=== PATIENT | male | born 1955 | race Caucasian/White ===

== ENCOUNTER 2017-12-25 11:18 | Emergency (ER) | payer OTHER, MEDICAID ==
[~2017-12-25] VITALS: Ht 170.2 cm; Wt 83.5 kg
[2017-12-25 11:19] VITALS: BP 137/82
--- NOTE | 2017-12-25 11:29 | NUR ---
PT AMB WITH W/C TO [facility].
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
--- NOTE | 2017-12-25 11:40 | NUR ---
Patient being evaluated by DR CHASE at bedside.
[2017-12-25 12:41] VITALS: BP 131/89
== END 2017-12-25 12:41 | disposition home or self-care (01) ==
LOC: MED 11:18
DX: S43.102A Unspecified dislocation of left acromioclavicular joint, initial encounter (principal); I10 Essential (primary) hypertension; W17.89XA Other fall from one level to another, initial encounter; Y93.89 Activity, other specified; Y92.89 Other specified places as the place of occurrence of the external cause; Y99.8 Other external cause status
CPT/HCPCS: 73000; 73020; 99284

== ENCOUNTER 2019-10-18 12:51 | Emergency (ER) | payer OTHER, MEDICAID ==
[~2019-10-18] VITALS: Ht 170.2 cm; Wt 81.6 kg
[2019-10-18 13:44] VITALS: BP 139/80
--- NOTE | 2019-10-18 13:53 | NUR ---
WAIT AT LOBBY.
--- NOTE | 2019-10-18 14:57 | NUR ---
PATIENT WHEELCHAIR ASSISTED TO BED 11.
--- NOTE | 2019-10-18 15:11 | NUR ---
BIB CAREGIVER C/O SORE THROAT X1 DAY. CHRONIC MOIST COUGH. DENIES SOB/ CP, N/V/D, CHILLS, FEVER. WHEEZING HEARD THROUGHOUT BILATERAL LOBES. RESP ARE EVEN AND UNLABORED. NO ACCESSORY MUSCLE USE NOTED. BOWEL SOUNDS NORMOACTIVE IN ALL QUADRANTS. SKIN IS COOL, DRY, IN TACT. PATIENT IS NON AMBULATORY. CAREGIVER AT BEDSIDE. HX: SEIZURES, DISABLED NKA
[2019-10-18 15:35] VITALS: BP 139/80
--- NOTE | 2019-10-18 15:36 | NUR ---
Patient discharged with v/s stable. Written and verbal after care instructions given and explained. Patient verbalized understanding. Wheel Chair Assisted with by caregiver. All questions addressed prior to discharge. Advised to follow up with PMD.
== END 2019-10-18 15:36 | disposition home or self-care (01) ==
LOC: MED 12:51
DX: J02.9 Acute pharyngitis, unspecified (principal); I10 Essential (primary) hypertension; F79 Unspecified intellectual disabilities
CPT/HCPCS: 99281

== ENCOUNTER 2019-11-08 12:11 | Inpatient (IN) | payer OTHER, MEDICAID ==
[~2019-11-08] VITALS: Ht 167.6 cm; Wt 90.7 kg
--- NOTE | 2019-11-08 12:42 | NUR ---
PT TO ER BED 11 VIA WHEELCHAIR
[2019-11-08 12:46] VITALS: BP 136/85
--- NOTE | 2019-11-08 12:50 | NUR ---
RECEIVED A 64/M FROM [facility]AGE VIA WHEELCHAIR. CAREGIVER REPORTS PT HAS HAD PRODUCTIVE COUGH X 2 WEEKS. LUNG SOUNDS DIMINISHED BILATERALLY. NO DISTRESS NOTED. IN BED FOR MSE.
[2019-11-08] MEDS ORDERED: ALBUTEROL SULFATE/IPRATROPIU 3 ML SOL IH ONE ×2 (13:00→15:00)
--- NOTE | 2019-11-08 13:08 | NUR ---
ADMINIISTERED HHN THERAPY AND RESPIRATORY DRUG ORDERED ENCOURAGED PATIENT FOR INTERMITTENT DEEP BREATHING DURING THERAPY
[2019-11-08 13:43] LABS: BASOPHILS # (AUTO) 0.1 K/uL (0.00-0.22); BASOPHILS % (AUTO) 0.6 % (0.0-2.0); HEMATOCRIT 38.8 % (36-52); HEMOGLOBIN 13.3 g/dL (12.0-18.0); LYMPHOCYTES # (AUTO) 5.1 K/uL (2.0-11.5); LYMPHOCYTES % (AUTO) 24.4 % (20.5-51.1); MEAN CORPUSCULAR HEMOGLOBIN 30 pg (27-31); MEAN CORPUSCULAR HGB CONC 34 g/dL (33-37); MONOCYTES # (AUTO) 2.7 K/uL (0.8-1.0); NEUTROPHILS # (AUTO) 12.9 K/uL (1.8-7.7); PLATELET COUNT (AUTO) 202 K/uL (140-450); RED BLOOD CELL COUNT(AUTO) 4.46 MIL/uL (4.20-6.10); RED CELL DISTRIBUTION WIDTH 13.1 % (11.6-13.7); WHITE BLOOD COUNT (AUTO) 20.8 K/uL (4.8-10.8)
[2019-11-08 14:06] LABS: ALBUMIN 3.2 g/dL (3.4-5.0); ANION GAP 18.9 (8-16); CARBON DIOXIDE 24.3 mmol/L (21-32); CREATININE 0.8 mg/dL (0.6-1.3); POTASSIUM 4.2 mmol/L (3.5-5.1); TOTAL BILIRUBIN 0.3 mg/dL (0.0-1.0)
[2019-11-08] MEDS ORDERED: IBUPROFEN CHILDRENS 100 MG/5 ML UDC PO ONE (14:10)
[2019-11-08 14:44] LABS: APPEARANCE,URINE CLEAR (CLEAR); BILIRUBIN,URINE NEGATIVE (NEGATIVE); BLOOD, URINE NEGATIVE (NEGATIVE); COLOR,URINE YELLOW (YELLOW); LEUKOCYTE ESTERASE ,URINE NEGATIVE (NEGATIVE); NITRITE, URINE NEGATIVE (NEGATIVE); PH,URINE 6.5 (5.0-9.0); UGLUCOSE NEGATIVE (NEGATIVE)
[2019-11-08] MEDS ORDERED: AZITHROMYCIN 500 MG in DEXTROSE 5% 250 ML IV ONE (15:00)
[2019-11-08] MEDS ORDERED: cefTRIAXone 1,000 MG VIAL ONE (15:01)
[2019-11-08] MEDS ORDERED: AZITHROMYCIN 500 MG INJ VIAL IV ONE (15:02)
--- NOTE | 2019-11-08 15:10 | NUR ---
TEMP 101.7 AXILLARY DESPITE MOTRIN PO 1 HR AGO, SPO2 92-95% ON RA, RR 20 EVEN AND UNLABORED, OCCASIONAL COUGH NOTED, DR EASTON MADE AWARE, ORDERS PENDING.
--- NOTE | 2019-11-08 15:13 | NUR ---
ADMINISTERED FOLLOW HHN THERAPY AND RESPIRATORY DRUG ORDERED ENCOURAGED PATIENT FOR INTERMITTENT DEEP BREATHING DURING THERAPY
[2019-11-08] MEDS ORDERED: ACETAMINOPHEN 160 MG/5 ML UDC PO ONE (15:15)
--- NOTE | 2019-11-08 15:19 | NUR ---
ELLIOT/RN AWARE OF SATURATION AT 89%-92% ON ROOM AIR
--- NOTE | 2019-11-08 15:20 | NUR ---
PT PLACED ON O2 2L NC, SPO2 95%
[2019-11-08] MEDS: NACL 0.9% 1,000 ML IV SCH ×2 (15:44→20:05)
[2019-11-08] MEDS ORDERED: LORazepam 2 MG/ML VIAL IM/IVP PRN (15:45)
[2019-11-08] MEDS ORDERED: HYDROcodone/APAP 5/325 MG 1 TAB TAB PO PRN (15:45)
[2019-11-08] MEDS ORDERED: DOCUSATE SODIUM 100 MG GELCAP PO PRN (15:45)
[2019-11-08] MEDS ORDERED: ONDANSETRON 4 MG/2 ML VIAL IM/IVP PRN (15:45)
[2019-11-08] MEDS ORDERED: MORPHINE SULFATE 2 MG/ML SYR IVP PRN (15:45)
[2019-11-08] MEDS ORDERED: ACETAMINOPHEN 325 MG TAB PO PRN (15:45)
[2019-11-08] MEDS ORDERED: ZOLPIDEM 5 MG TAB PO PRN (15:45)
[2019-11-08 16:22] LABS: PROTHROMBIN TIME 10.6 secs (10.8-13.4)
[2019-11-08 16:25] LABS: CHOL/HDL RATIO 2.9 (1-4.5); FREE T4 (FREE THYROXINE) 1.1 ng/dL (0.76-1.46); MAGNESIUM 2.2 mg/dL (1.8-2.4); PHOSPHORUS 2.8 mg/dL (2.5-4.9); THYROID STIMULATING HORMONE 1.02 uIU/mL (0.34-3.74)
[2019-11-08 16:30] VITALS: BP 100/64
--- NOTE | 2019-11-08 16:30 | NUR ---
PT CAME TO UNIT ON A GURNEY ACCOMPANIED BY CAREGIVER. PT WAS TRANSFERRED TO UNIT BED. ADMISSION ASSESSMENT DONE. IV INTACT. SKIN INTACT. CALL LIGHT IN REACH. PT'S BELONGING BY BEDSIDE. PT IS ALERT AND ABLE TO COMMUNICATE. SAFETY ASSESSMENT DONE.
--- NOTE | 2019-11-08 16:30 | NUR ---
APatient will be admitted to care of DR PROCTOR. Admited to TELE. Will go to room 110A. Belongings list completed. Report to TAIWO WINTERS.
[2019-11-08] MEDS ORDERED: ORE25 PO (16:44)
[2019-11-08] MEDS ORDERED: GEMF600T5 PO (16:44)
[2019-11-08] MEDS ORDERED: [UNRECOGNIZED DRUG - CODE] PO (16:44)
[2019-11-08] MEDS ORDERED: PSYL0.5227 PO (16:44)
[2019-11-08] MEDS ORDERED: METO25TE2 PO (16:44)
[2019-11-08] MEDS ORDERED: PRIM250T70 PO (16:44)
[2019-11-08] MEDS ORDERED: LEVE1000 PO (16:44)
[2019-11-08] MEDS ORDERED: SYN.05 PO (16:44)
[2019-11-08] MEDS ORDERED: TRAV5SOL OP (16:44)
[2019-11-08] MEDS ORDERED: carb/levo PO (16:44)
[2019-11-08] MEDS ORDERED: MULT-153 PO (16:44)
[2019-11-08] MEDS ORDERED: [UNRECOGNIZED DRUG - OTHER] TOP (16:44)
[2019-11-08] MEDS ORDERED: LACO150T PO (16:44)
[2019-11-08] MEDS ORDERED: CARB15DR8 OT (16:44)
[2019-11-08] MEDS ORDERED: DIVA125E1 PO (16:44)
[2019-11-08] MEDS ORDERED: BISA-188 PR (17:02)
[2019-11-08] MEDS ORDERED: TYL650S PO (17:02)
[2019-11-08] MEDS ORDERED: IBUP-2213 PO (17:02)
[2019-11-08] MEDS ORDERED: NITR0.4T2 SL ×2 (17:02)
[2019-11-08] MEDS ORDERED: NACL 0.9% 3,000 ML IV ONE (17:30)
--- NOTE | 2019-11-08 18:00 | NUR ---
PT IS IN BED AT THIS TIME. PT IS COUGHING INTERMITTENTLY. NO SPUTUM NOTED. SECOND BAG OF BOLUS INFUSING. WILL CONTINUE TO MONITOR. CALL LIGHT IN REACH.
[2019-11-08 18:17] LABS: BARBITURATE, URINE POS. ng/ml (NEG <=200); BENZODIAZEPINE, URINE NEG. ng/mL (NEG <=200); CANNABINOID, URINE NEG. ng/mL (NEG <=50); COCAINE, URINE NEG. ng/mL (NEG <=300); OPIATE, URINE NEG. ng/mL (NEG <=2000); PHENCYCLIDINE SCREEN,URINE NEG. ng/mL (NEG <=25)
[2019-11-08] MEDS ORDERED: CARB1ODT4 PO (18:36)
--- NOTE | 2019-11-08 19:36 | NUR ---
SHIFT REPORT GIVEN TO BLOWER ROOM ATTENDANT NURSE. PT IS IN NOT IN DISTRESS AT THIS TIME. CALL LIGHT IN REACH.
[2019-11-08 19:40] VITALS: BP 110/61
--- NOTE | 2019-11-08 19:40 | NUR ---
RECEIVED FROM AM RN IN BED AWAKE AND ALERT. TALKING BUT UNABLE TO UNDERSTAND WORDS. BED ALARM AT BEDSIDE. WITH IVF FLUID BOLUS # 3 BAG INFUSING AT THIS TIME. IVF SITE LEFT WRIST #20 INTACT AND NO INFILTRATION NOTED. NEEDS WILL BE ANTICIPATED AND WILL BE MET. WITH MENTAL DISABILITY HX. AFEBRILE. DX. SEPSIS SECONDARY TO PNA. WITH O2 AT 2LPM/NC AND 02 SAT AT 96 %. PT. COUGHING INTERMITTENTLY. WITH BREATHING TREATMENTS.
[2019-11-08] MEDS ORDERED: CARBIDOPA/LEVODOPA 25/100 MG 1 TAB PO SCH (20:00)
[2019-11-08] MEDS: METOPROLOL SUCCINATE 50 MG TABER PO SCH (20:38)
[2019-11-08] MEDS: LACOSAMIDE 100 MG TABLET PO SCH (20:38)
[2019-11-08] MEDS: DIVALPROEX SPRINKLES 125 MG CAPDR PO SCH (20:39)
--- NOTE | 2019-11-08 20:40 | NUR ---
ALL P.O. MEDICATIONS TOLERATED WELL. NO S/S OF ANY ASPIRATIONS. STILL COUGHING INTERMITTENTLY. ON 02 AT 2LPM/NC. ABLE TO VERBALIZE SIMPLE NEEDS VERY SLOWLY. HX. MENTAL DISABILITY. NEEDS WILL BE ANTICIPATED AND WILL BE TURNED Q 2H WITH PILLOW SUPPORT TO PRESSURE AREAS. BREATHING TREATMENTS CONTINUE. ON IV ABT THERAPY. NO ADVERSE REACTIONS NOTED FROM IV ABT'S ADMINISTERED.
[2019-11-08] MEDS: CARBAMIDE PEROXIDE 6.5% OT 15 ML BTL OT SCH (20:50)
[2019-11-08] MEDS: PIPERACILLIN/TAZOBACTAM 3.375 GM in DEXTROSE 5% 50 ML IV SCH (20:50)
[2019-11-08] MEDS: levETIRAcetam 500 MG TAB PO SCH (20:51)
[2019-11-08] MEDS ORDERED: NON-FORMULARY ITEM (Lacosamide (Vimpat) 150 MG) PO SCH (21:00)
[2019-11-08] MEDS ORDERED: NON-FORMULARY ITEM (Travoprost (Travatan Z 5 Ml) 1 DROP) OP SCH (21:00)
[2019-11-08] MEDS ORDERED: PRIMIDONE PO SCH (21:00)
[2019-11-08] MEDS: PRIMIDONE 50 MG TAB PO SCH (21:08)
--- NOTE | 2019-11-08 23:49 | NUR ---
PT. SLEEPING WELL. NO RESTLESSNESS NOTED. IVF SITE INTACT AND NO INFILTRATION. BED ALARM ON. NEEDS WILL BE ANTICIPATED AND WILL BE MET. TOTAL CARE.
[2019-11-09] VITALS: BP 113/60
--- NOTE | 2019-11-09 | NUR ---
AWAKE IN BED, FEELING COLD. WARM BLANKET GIVEN. ADVISED TO GO BACK TO SLEEP.
--- NOTE | 2019-11-09 02:15 | NUR ---
PT. TURNED BY CNAS Q 2H. WOKE UP EASILY WHEN TOUCHED. NO SOB. ON AT 2LPM/NC. CALL LIGHT WITH IN REACH AND BED ALARM ON.
[2019-11-09 04:00] VITALS: BP 114/62
--- NOTE | 2019-11-09 04:20 | NUR ---
TURNED BY CNAS AND AM PERSONAL HYGIENE CARE RENDERED. NO RESTLESSNESS THIS SHIFT.
[2019-11-09] MEDS: PIPERACILLIN/TAZOBACTAM 3.375 GM in DEXTROSE 5% 50 ML IV SCH ×3 (05:31→20:53)
[2019-11-09] MEDS: NACL 0.9% 1,000 ML IV SCH ×3 (05:31→22:32)
--- NOTE | 2019-11-09 06:17 | NUR ---
SLEPT WELL THIS SHIFT. STILL WITH OCCASIONAL INTERMITTENT COUGHING. NON PRODUCTIVE. AFEBRILE. TOTAL CARE. NEEDS ANTICIPATED AND MET.
[2019-11-09] MEDS: LEVOTHYROXINE 0.05 MG TAB PO SCH (06:26)
[2019-11-09 06:36] LABS: BASOPHILS # (AUTO) 0.1 K/uL (0.00-0.22); BASOPHILS % (AUTO) 0.4 % (0.0-2.0); EOSINOPHILS # (AUTO) 0.3 K/uL (0-0.4); EOSINOPHILS % (AUTO) 2.7 % (0.0-4.0); HEMATOCRIT 36.2 % (36-52); HEMOGLOBIN 12.2 g/dL (12.0-18.0); LYMPHOCYTES # (AUTO) 3.8 K/uL (2.0-11.5); LYMPHOCYTES % (AUTO) 30.9 % (20.5-51.1); MEAN CORPUSCULAR HEMOGLOBIN 30 pg (27-31); MEAN CORPUSCULAR HGB CONC 34 g/dL (33-37); MEAN CORPUSCULAR VOLUME 88.9 fL (80-94); MONOCYTES # (AUTO) 1.2 K/uL (0.8-1.0); MONOCYTES % (AUTO) 9.7 % (1.7-9.3); NEUTROPHILS # (AUTO) 6.9 K/uL (1.8-7.7); NEUTROPHILS % (AUTO) 56.3 % (42.2-75.2); PLATELET COUNT (AUTO) 172 K/uL (140-450); RED BLOOD CELL COUNT(AUTO) 4.07 MIL/uL (4.20-6.10); RED CELL DISTRIBUTION WIDTH 13.2 % (11.6-13.7); WHITE BLOOD COUNT (AUTO) 12.3 K/uL (4.8-10.8)
[2019-11-09 06:51] LABS: CARBON DIOXIDE 26.5 mmol/L (21-32); CREATININE 0.8 mg/dL (0.6-1.3); POTASSIUM 3.5 mmol/L (3.5-5.1)
--- NOTE | 2019-11-09 07:19 | NUR ---
RECEIVED PATIENT FROM LAST PUTTER AWAY NURSE FOR CONTINUITY OF CARE. PATIENT IS AWAKE. RESPIRATIONS EVEN AND UNLABORED, ROOM AIR. INTERMITTENT, NONPRODUCTIVE COUGH. NO SOB. VISIBLE CHEST RISE NOTED. ON TELE MONITORING. NO CHEST PAIN. ABDOMEN ROUND, SOFT, NONTENDER. ACTIVE BOWEL SOUNDS X4 QUADS. SKIN WARM, DRY, AND INTACT. IV IN THE LEFT WRIST G20, RUNNING NS AT 130 ML/HR. IV PATENT AND FLUSHING WELL. PATIENT IS BED BOUND. FALL, SEIZURE, AND ASPIRATION PRECAUTIONS IN PLACE. BED IN LOW POSITION. CALL LIGHT IS WITHIN REACH. WILL CONTINUE TO MONITOR
[2019-11-09 08:00] VITALS: BP 144/88
[2019-11-09] MEDS: LACOSAMIDE 100 MG TABLET PO SCH ×2 (09:00→21:51)
[2019-11-09] MEDS: CARBAMIDE PEROXIDE 6.5% OT 15 ML BTL OT SCH ×3 (09:00→22:12)
[2019-11-09] MEDS ORDERED: CARBIDOPA PO SCH (09:00)
[2019-11-09] MEDS ORDERED: LEVODOPA PO SCH (09:00)
--- NOTE | 2019-11-09 09:50 | NUR ---
GIVEN MORNING MEDICATIONS PO. CRUSHED AND MIXED WITH APPLESAUCE. EARDROPS TO BOTH EARS, EXPLAINED TO PATIENT MEDICATIONS AND SIDE EFFECT. PATIENT VERBALIZED UNDERSTANDING. BED IN LOW POSITION. CALL LIGHT IS WITHIN REACH
[2019-11-09] MEDS: GEMFIBROZIL 600 MG TAB PO SCH (09:54)
[2019-11-09] MEDS: DIVALPROEX SPRINKLES 125 MG CAPDR PO SCH ×2 (09:54→21:48)
[2019-11-09] MEDS: PRIMIDONE 50 MG TAB PO SCH ×2 (09:57→21:49)
[2019-11-09] MEDS: LACTOBACILLUS RHAMNOSUS GG 1 EACH CAP PO SCH (09:57)
[2019-11-09] MEDS: levETIRAcetam 500 MG TAB PO SCH ×2 (09:57→21:48)
[2019-11-09] MEDS: CARBIDOPA/LEVODOPA 25/100 MG 1 TAB PO SCH ×3 (09:57→17:02)
[2019-11-09] MEDS: HYDROCHLOROTHIAZIDE 25 MG TAB PO SCH (09:58)
--- NOTE | 2019-11-09 10:33 | NUR ---
PATIENT HAS BEEN SCREENED AND CATEGORIZED HIGH NUTRITION RISK. PATIENT WILL BE SEEN WITHIN 1-2 DAYS OF ADMISSION. 11/09/19-11/10/[address]
[2019-11-09 12:00] VITALS: BP 119/70
--- NOTE | 2019-11-09 12:32 | NUR ---
PATIENT IS EATING LUNCH AT THIS TIME. SHELLFISH FARMING SUPERVISOR AT BEDSIDE HELPING FEED THE PATIENT
--- NOTE | 2019-11-09 13:00 | NUR ---
HANG ZOSYN VIA IVPB AND PO CARBIDOPA/LEVODOPA CRUSHED AND MIXED WITH APPLESAUCE. EXPLAINED TO PATIENT MEDICATIONS AND SIDE EFFECTS. PATIENT IS CURRENTLY EATING LUNCH AT THIS TIME,COMPENSATION AND BENEFITS ADVISOR AT BEDSIDEWILL CONTINUE TO MONITOR.
--- NOTE | 2019-11-09 13:08 | NUR ---
[facility], [facility], [facility] APOLINAR MCCLAIN LEFT HER INFORMATION IN CASE THERE'S A NEED FOR ANY CONSENT OR ANYTHING. HER PHONE NUMBER IS [phone].
--- NOTE | 2019-11-09 14:01 | NUR ---
S.T. BEDSIDE SWALLOW EVAL COMPLETED See report for details. Pt presents w/ mild-mod pharyngeal phase dysphagia c/b consistent throat clear and intermittent wet voice after swallows of thin liquid via straw. Vocal quality clear and no coughing after swallows of nectar thick liquids. Pt demo'd some difficulty managing solids likely due to missing dentition. Recommend: 1) Downgrade diet textures to mechanical soft chopped w/ NECTAR THICK LIQUIDS ONLY. Straws okay. 2) FNS kitchen to provide nectar thick water for bedside. 3) 1:1 feeder w/ aspiration precautions. 4) P.O. meds crushed and mixed w/ puree such as applesauce. 5) Oral care after meals. DC to nsg care at this time. D/w pt results/recs; Endorsed to VIANEY Armenta. Time 0521-2037
--- NOTE | 2019-11-09 14:16 | NUR ---
11/09/19 RD INITIAL ASSESSMENT COMPLETED PLEASE REFER TO NUTRITION ASSESSMENT UNDER CARE ACTIVITY FOR ESTIMATED NUTRITIONAL NEEDS. 1. CONTINUE CARDIAC CCHO 60 GM MECHANICAL SOFT WITH NECTAR THICK LIQUIDS RECOMMENDED BY SPEECH THERAPIST 2. CONTINUE PROVIDING ASSISTANCE TO PATIENT DURING MEALS 3. RD TO FOLLOW-UP 3-5 DAYS, MODERATE RISK А[address]
--- NOTE | 2019-11-09 15:15 | NUR ---
PATIENT IS AWAKE, WATCHING PEOPLE PASS BY DOWN THE HALLWAY. INTERMITTENT NONPRODUCTIVE COUGH. ON 2L O2 VIA NC. NO SIGNS OF DISTRESS NOTED. BED IN LOW POSITION. CALL LIGHT IS WITHIN REACH. WILL CONTINUE TO MONITOR
[2019-11-09 16:00] VITALS: BP 105/51
--- NOTE | 2019-11-09 17:03 | NUR ---
HANG NEW IV BAG OF NS AT RATE OF 130 ML/HR, GIVEN SINEMET PO. EXPLAINED TO PATIENT MEDS AND SIDE EFFECTS. PATIENT VERBALIZED UNDERSTANDING. WILL CONTINUE TO MONITOR
--- NOTE | 2019-11-09 17:14 | NUR ---
De Icer Installer Note: Per administrator pesticide Cristiane Williamson from [facility], patient has been living at their facility since August 10, 2014 and patient can return to their facility upon discharge, except if he needs abx iv. She stated patient is not conserved and he has a sister named Sophie Garcia . Cristiane reported they contact [facility] for medical consents, case management director from [facility] is Janie Wilson . Patient's pcp is Brigitte Frederick and [facility] wedding transportation driver is usually available in the mornings. Patient is non ambulatory and uses a wheelchair. Cristiane stated she does not have any questions/concerns at this time.
--- NOTE | 2019-11-09 17:44 | NUR ---
REPOSITIONED AND CHANGED BED LINENS AND GOWN.
--- NOTE | 2019-11-09 18:27 | NUR ---
PATIENT IS BEING FED BY MEDIA RELATIONS ASSOCIATE AT THIS TIME. NO SIGNS OF DISTRESS NOTED. BED IN LOW POSITION. CALL LIGHT IS WITHIN REACH.
--- NOTE | 2019-11-09 19:24 | NUR ---
ENDORSED PATIENT TO THE REACTOR FUELING SUPERVISOR NURSE FOR CONTINUITY OF CARE. PATIENT IS AWAKE, NO SOB. NO PAIN. PATIENT IS IN STABLE CONDITION
--- NOTE | 2019-11-09 19:25 | NUR ---
RECD. RESTING IN BED, AWAKE, A/OX1, WITH INTELLECTUAL DISABILITY. RESPIRATION EVEN AND UNLABORED. IV OF NS AT 130 ML/HR INFUSING LEFT WRIST G20. SAFETY MEASURES ENFORCED. BED IN THE LOWEST POSITION, SIDE RAILS UP AND PADDED. BED ALARM ON. REORIENTED TO HOSPITAL SETTING. PLAN OF CARE FOR THE SHIFT DISCUSSED. NEEDS REINFORCEMENT. DENIES PAIN 0/10.
[2019-11-09 20:00] VITALS: BP 120/72
--- NOTE | 2019-11-09 20:06 | NUR ---
WITH FEVER - 101.4 F, MEDICATED WITH TYLENOL PER MD ORDER. COOLING MEASURES GIVEN.
--- NOTE | 2019-11-09 21:00 | NUR ---
TEMPERATURE CHECKED - 98.6 F. RESTING COMFORTABLY IN BED.
[2019-11-09] MEDS: METOPROLOL SUCCINATE 50 MG TABER PO SCH (21:49)
--- NOTE | 2019-11-09 23:00 | NUR ---
SLEEPING COMFORTABLY IN BED.
--- NOTE | 2019-11-09 23:03 | NUR ---
Patient's Plan of Care was discussed and reviewed with STATION ENGINEER CHIEF: DAVIS DARLING
[2019-11-10] VITALS: BP 96/54
--- NOTE | 2019-11-10 00:57 | NUR ---
AWAKE WITH PERSISTENT COUGHING NOTED, INFORMED DR. BRASHER, WILL ORDER COUGH MEDICINE.
[2019-11-10] MEDS ORDERED: guaiFENesin DM 200/20 MG-10 ML 10 ML UDC PO PRN (01:00)
--- NOTE | 2019-11-10 01:21 | NUR ---
MEDICATED WITH GUAIFENESIN 5 ML PO ORDERED BY .
--- NOTE | 2019-11-10 02:25 | NUR ---
N0 COUGHING NOTED. SLEEPING COMFORTABLY.
[2019-11-10 04:00] VITALS: BP 120/65
[2019-11-10] MEDS: NACL 0.9% 1,000 ML IV SCH ×4 (04:01→21:38)
[2019-11-10] MEDS: PIPERACILLIN/TAZOBACTAM 3.375 GM in DEXTROSE 5% 50 ML IV SCH ×3 (04:47→21:17)
[2019-11-10 06:18] LABS: BASOPHILS # (AUTO) 0.1 K/uL (0.00-0.22); BASOPHILS % (AUTO) 1.1 % (0.0-2.0); EOSINOPHILS # (AUTO) 0.3 K/uL (0-0.4); EOSINOPHILS % (AUTO) 3.5 % (0.0-4.0); HEMATOCRIT 32.7 % (36-52); HEMOGLOBIN 11.3 g/dL (12.0-18.0); LYMPHOCYTES # (AUTO) 3.7 K/uL (2.0-11.5); LYMPHOCYTES % (AUTO) 36.3 % (20.5-51.1); MEAN CORPUSCULAR HEMOGLOBIN 31 pg (27-31); MEAN CORPUSCULAR HGB CONC 35 g/dL (33-37); MEAN CORPUSCULAR VOLUME 88.2 fL (80-94); MONOCYTES # (AUTO) 1.6 K/uL (0.8-1.0); MONOCYTES % (AUTO) 16.1 % (1.7-9.3); NEUTROPHILS # (AUTO) 4.3 K/uL (1.8-7.7); PLATELET COUNT (AUTO) 162 K/uL (140-450); RED CELL DISTRIBUTION WIDTH 13.2 % (11.6-13.7); WHITE BLOOD COUNT (AUTO) 10.1 K/uL (4.8-10.8)
[2019-11-10 06:33] LABS: ANION GAP 11.1 (8-16); CARBON DIOXIDE 27.2 mmol/L (21-32); CREATININE 0.8 mg/dL (0.6-1.3); POTASSIUM 3.3 mmol/L (3.5-5.1)
[2019-11-10 06:36] LABS: PHOSPHORUS 2.5 mg/dL (2.5-4.9)
[2019-11-10] MEDS: LEVOTHYROXINE 0.05 MG TAB PO SCH (06:42)
--- NOTE | 2019-11-10 07:00 | NUR ---
RESPIRATORY STATUS REMAIN STABLE. WILL ENDORSE TO AM SHIFT NURSE FOR CONTINUITY OF CARE.
--- NOTE | 2019-11-10 07:20 | NUR ---
RECEIVED BEDSIDE REPORT FROM CART ATTENDANT NURSE. PT IS AWAKE BUT NOT ORIENTED/ALERT. NO S/S OF ACUTE DISTRESS NOTED. PT IS ON 2 L O2 NC. SEIZURE AND FALL PRECAUTIONS IN PLACE. IV SITE L WRIST 22 G INFUSING NS 130 ML/HR. SKIN INTACT. CALL LIGHT IS WITHIN REACH.
[2019-11-10 08:00] VITALS: BP 110/59
[2019-11-10] MEDS ORDERED: MAGNESIUM HYDROXIDE 2400 MG/30 ML UDC PO SCH (09:00)
[2019-11-10] MEDS ORDERED: POTASSIUM CHLORIDE 10 MEQ TABER PO SCH (09:00)
[2019-11-10] MEDS: CARBAMIDE PEROXIDE 6.5% OT 15 ML BTL OT SCH ×2 (09:00→20:48)
--- NOTE | 2019-11-10 09:05 | NUR ---
PT'S RESIDENTIAL LOCAL OWNER OPERATOR TRUCK DRIVER KYAW IS VISITING AT BEDSIDE. ACCORDING TO HER, PT TAKES ALL HIS MEDS CRUSHED, INCLUDING LACOSAMIDE. PHARMACIST THOMAS IS AWARE.
--- NOTE | 2019-11-10 09:20 | NUR ---
PT HAD A MEDIUM BM. PT WAS CLEANED, CHANGED AND REPOSITIONED. LINENS CHANGED.
[2019-11-10] MEDS: GEMFIBROZIL 600 MG TAB PO SCH (09:27)
[2019-11-10] MEDS: DIVALPROEX SPRINKLES 125 MG CAPDR PO SCH ×2 (09:27→20:46)
[2019-11-10] MEDS: PRIMIDONE 50 MG TAB PO SCH ×2 (09:28→20:46)
[2019-11-10] MEDS: HYDROCHLOROTHIAZIDE 25 MG TAB PO SCH (09:28)
[2019-11-10] MEDS: CARBIDOPA/LEVODOPA 25/100 MG 1 TAB PO SCH ×3 (09:28→17:01)
[2019-11-10] MEDS: levETIRAcetam 500 MG TAB PO SCH ×2 (09:28→20:45)
[2019-11-10] MEDS: LACOSAMIDE 100 MG TABLET PO SCH ×2 (09:36→20:50)
[2019-11-10] MEDS: LACTOBACILLUS RHAMNOSUS GG 1 EACH CAP PO SCH (09:39)
--- NOTE | 2019-11-10 09:53 | NUR ---
AM MEDS ADMINISTERED CRUSHED WITH APPLE SAUCE, PT TOLERATED WELL. DID NOT FIND PT'S EAR DROPS IN THE CASSETTE OR AT BEDSIDE, PHARMACIST IS AWARE.
--- NOTE | 2019-11-10 10:06 | NUR ---
PT'S IV CAME OUT, WILL ATTEMPT TO INSERT NEW IV. Addendum: 11/10/19 at 1620 by Andreia Esquivel RN NEW IV INSERTED: Alfredito Vasquez G
--- NOTE | 2019-11-10 11:43 | NUR ---
DISCHARGE PLANNING: THIS IS A 64 Y/O MALE PATIENT FROM A [facility], WHO CAME IN DUE TO COUGH AND FATIGUE. PAST MEDICAL HISTORY INCLUDE MILD INTELLECTUAL DISABILITY, SEIZURE DISORDER, GLAUCOMA, DLD, HTN, HYPOTHYROIDISM AND PARKINSON'S DISEASE. INITIAL DIAGNOSIS OF SEPSIS 2/2 TO PNA. CURRENT LABS INCLUDE WBC 10.1, H/H 11.3/32.7, NA/K 140/3.3, BUN/CREA 12/0.8. ON ZOSYN. NO CONSULTS AT THIS TIME. DC PLAN BACK TO USP ONCE STABLE. Addendum: 11/10/19 at 1202 by Rocío Burrell CM CONTACTED [facility] AT [phone], ABLE TO SPEAK TO [facility] SUPERVISOR RICE MILLING. INFORMED HER OF THE DC PLAN FOR PATIENT ON WEDNESDAY. PER KYAW THEY ARE ABLE TO PROVIDE TRANSPORT. CHARGE NURSE MADE AWARE.
--- NOTE | 2019-11-10 13:00 | NUR ---
PT'S CAREGIVERS CAME BY TO VISIT, THEY SAID THAT PT EATS A PUREED DIET AT BASELINE. I TOLD THEM THAT PT HAD A ST EVAL YESTERDAY, AND A MECHANICAL SOFT DIET WAS RECOMMENDED. I SPOKE WITH DR BRAND REGARDING PT'S DIET, AND WE DECIDED TO KEEP PT ON THE MECHANICAL SOFT DIET PER ST RECOMMENDATION, SINCE PT WAS ABLE TO TOLERATE IT WELL SO FAR . PT IS ON NECTAR THICK LIQUIDS.
--- NOTE | 2019-11-10 13:08 | NUR ---
*S.T. treatment note* S: While passing pt's room, pt called out to clinician asking for help to be fed. Pt was reclined at 30 degrees and reported difficulty self-feeding. TOWER HELPER notified. Per TOWER HELPER, pt had a visitor who reported to her that pt should not be fed by [facility] staff, as he feeds himself at baseline. O: Pt's HOB was raised to 90 degrees, fed spoonfuls of lunch tray (mech soft vegetables and rice), and nectar thick liquids via straw. No overt s/s aspiration observed. A: Pt demonstrates good tolerance of current diet textures. Recommend continue mech soft chopped diet, nectar thick liquids, and assist with feeding, as pt has difficulty coordinating upper extremities and has a resting tremor, making it all the more challenging. While caregiver reported that pt feeds himself at baseline, if the pt is able to verbalize he needs assistance, feeding assistance should be provided at this time and even upon discharge, should he request it. Endorsed to [facility]. Time [id number]
[2019-11-10 16:00] VITALS: BP 119/61
--- NOTE | 2019-11-10 19:15 | NUR ---
ENDORSED PT TO FRIT MAKER NURSE IN STABLE CONDITION.
--- NOTE | 2019-11-10 19:16 | NUR ---
RECD. RESTING IN BED, AWAKE, A/OX2. ABLE TO VERBALIZED SOME NEEDS. RESPIRATION EVEN AND UNLABORED. ON 02 AT 2 LITERS VIA N/C. SATURATING 97%. WITH INTERMITTENT PRODUCTIVE COUGHING, HEAD OF BED ELEVATED 40 DEGREES. IV OF NS AT 130 ML/HR INFUSING LEFT AC G22. REORIENTED TO HOSPITAL SETTING. PLAN OF CARE FOR THE SHIFT DISCUSSED. NEEDS REINFORCEMENT. DENIES PAIN 0/10.
--- NOTE | 2019-11-10 20:00 | NUR ---
Patient's Plan of Care was discussed and reviewed with HIGHWAY ADMINISTRATIVE ENGINEER: DAVIS DARLING
[2019-11-10] MEDS: ALBUTEROL SULFATE/IPRATROPIU 3 ML SOL IH PRN (20:03)
--- NOTE | 2019-11-10 20:03 | NUR ---
PATIENT PRESENTING WITH LABORED BREATHING AND INTERMITTENT STRONG LOOSE NPC [facility] THERAPY AND RESPIRATORY DRUG ADMINISTERED AT THIS TIME FOLLOW UP HHN THERAPY RECOMMENDED NAPPER TENDER TO CONTACT RESIDENT
[2019-11-10] MEDS ORDERED: CRUSHER, PILL MC ONE (20:39)
--- NOTE | 2019-11-10 20:45 | NUR ---
DUE PO MEDICATIONS GIVEN WITH APPLE SAUCE. ATE 100% OFSNACK FOR THE NIGHT.
[2019-11-10] MEDS: LATANOPROST 0.005% OP 2.5 ML BTL OP SCH (20:47)
[2019-11-10] MEDS: METOPROLOL SUCCINATE 50 MG TABER PO SCH (21:00)
[2019-11-10] MEDS: ALBUTEROL SULFATE/IPRATROPIU 3 ML SOL IH SCH (21:10)
--- NOTE | 2019-11-10 21:20 | NUR ---
ADMINISTERED SCHEDULED IV ABX ORDERED. INSTRUCTED PT TO KEEP ARM STRAIGHT, PT FOLLOWED COMMAND.
--- NOTE | 2019-11-10 23:00 | NUR ---
SLEEPING COMFORTABLY IN BED.
[2019-11-11] VITALS: BP 114/55
[2019-11-11] MEDS: ALBUTEROL SULFATE/IPRATROPIU 3 ML SOL IH PRN (00:17)
--- NOTE | 2019-11-11 02:00 | NUR ---
COMFORTABLE IN BED. NO DISTRESS NOTED.
[2019-11-11] MEDS: PIPERACILLIN/TAZOBACTAM 3.375 GM in DEXTROSE 5% 50 ML IV SCH ×3 (04:12→20:43)
--- NOTE | 2019-11-11 04:12 | NUR ---
ADMINISTERED SCHEDULED IV ABX ORDERED. PT LYING DOWN IN BED ASLEEP WITH NO SIGNS OF DISTRESS.
[2019-11-11] MEDS: NACL 0.9% 1,000 ML IV SCH ×2 (05:10→17:05)
[2019-11-11 05:54] LABS: ANION GAP 10.7 (8-16); CARBON DIOXIDE 26.3 mmol/L (21-32); CREATININE 0.8 mg/dL (0.6-1.3)
[2019-11-11 05:58] LABS: PHOSPHORUS 2.7 mg/dL (2.5-4.9)
[2019-11-11] MEDS: LEVOTHYROXINE 0.05 MG TAB PO SCH (06:01)
[2019-11-11 06:45] LABS: BASOPHILS % (AUTO) 0.5 % (0.0-2.0); EOSINOPHILS # (AUTO) 0.4 K/uL (0-0.4); EOSINOPHILS % (AUTO) 4.3 % (0.0-4.0); HEMATOCRIT 33.4 % (36-52); HEMOGLOBIN 11.5 g/dL (12.0-18.0); LYMPHOCYTES # (AUTO) 4.5 K/uL (2.0-11.5); LYMPHOCYTES % (AUTO) 45.7 % (20.5-51.1); MEAN CORPUSCULAR HEMOGLOBIN 30 pg (27-31); MEAN CORPUSCULAR HGB CONC 35 g/dL (33-37); MONOCYTES # (AUTO) 1.5 K/uL (0.8-1.0); MONOCYTES % (AUTO) 15.5 % (1.7-9.3); NEUTROPHILS # (AUTO) 3.3 K/uL (1.8-7.7); PLATELET COUNT (AUTO) 194 K/uL (140-450); RED BLOOD CELL COUNT(AUTO) 3.79 MIL/uL (4.20-6.10); RED CELL DISTRIBUTION WIDTH 13.3 % (11.6-13.7); WHITE BLOOD COUNT (AUTO) 9.8 K/uL (4.8-10.8)
--- NOTE | 2019-11-11 07:20 | NUR ---
CONDITION REMAIN STABLE. ENDORSED TO AM SHIFT NURSE FOR CONTINUITY OF CARE.
--- NOTE | 2019-11-11 07:25 | NUR ---
RECEIVED BEDSIDE SHIFT REPORT FROM KENO WRITER NURSE FOR CONTINUATION OF CARE. PATIENT HAS MILD INTELLECTUAL DISABILITY, MADE VISIBLE EYE CONTACT BUT IS MINIMALLY RESPONSIVE TO VERBAL CUES. SKIN INTACT, IV RUNNING AT 130 ML/HR, ASYMPTOMATIC. WILL CONTINUE TO MONITOR.
[2019-11-11 08:00] VITALS: BP 118/65
[2019-11-11] MEDS: ALBUTEROL SULFATE/IPRATROPIU 3 ML SOL IH SCH ×2 (08:46→21:08)
[2019-11-11] MEDS: CARBAMIDE PEROXIDE 6.5% OT 15 ML BTL OT SCH ×2 (09:42→20:46)
[2019-11-11] MEDS: HYDROCHLOROTHIAZIDE 25 MG TAB PO SCH (09:44)
[2019-11-11] MEDS: GEMFIBROZIL 600 MG TAB PO SCH (09:45)
[2019-11-11] MEDS: LACTOBACILLUS RHAMNOSUS GG 1 EACH CAP PO SCH (09:45)
[2019-11-11] MEDS: CARBIDOPA/LEVODOPA 25/100 MG 1 TAB PO SCH ×3 (09:45→17:16)
[2019-11-11] MEDS: levETIRAcetam 500 MG TAB PO SCH ×2 (09:45→20:43)
[2019-11-11] MEDS: PRIMIDONE 50 MG TAB PO SCH ×2 (09:56→20:43)
[2019-11-11] MEDS: DIVALPROEX SPRINKLES 125 MG CAPDR PO SCH ×2 (09:56→20:43)
[2019-11-11] MEDS: LACOSAMIDE 100 MG TABLET PO SCH ×2 (10:00→20:47)
--- NOTE | 2019-11-11 10:00 | NUR ---
PATIENT HAS A MILD INTELLECTUAL DISABILITY, RESPONDS SIMPLY TO QUESTIONS POSED BY ACQUISITIONS LOGISTICS ANALYST. IS ABLE TO EAT WITH ASSISTANCE, REQUIRES TOTAL ASSISTANCE. TOLERATED PO MEDICATION PASS WELL. VITAL SIGNS ARE STABLE. CONCERNS ADDRESSED AT THIS TIME. WILL CONTINUE TO MONITOR.
--- NOTE | 2019-11-11 13:00 | NUR ---
IV ANTIBIOTICS RUNNING, TOLERATING WELL. EDUCATED ON THE CALL LIGHT, REINFORCEMENT NEEDED. WILL CONTINUE TO MONITOR.
[2019-11-11 16:00] VITALS: BP 128/74
--- NOTE | 2019-11-11 16:00 | NUR ---
ROUNDS MADE FOR PATIENT SAFETY, LUNCH CONSUMED AT 50%. DENIES DISCOMFORT AT THIS TIME. SIGNS AND SYMPTOMS OF SEPSIS ARE NOT PRESENT AT THIS TIME. WILL CONTINUE TO MONITOR.
--- NOTE | 2019-11-11 19:19 | NUR ---
RECEIVED PATIENT IN STABLE CONDITION FROM AM SHIFT NURSE FOR CONTINUITY OF CARE. RESPIRATIONS EVEN, UNLABORED. CONTINUES ON O2 2L NC. IV SITE TO LEFT WRIST 22G PATENT/INTACT, INFUSING FLUIDS WELL. NO C/O PAIN. NO S/SX ACUTE DISTRESS. CALL LIGHT WITHIN REACH. WILL CONTINUE TO MONITOR. Addendum: 11/11/19 at 2252 by Sushila Silva RN DISREGARD IV SITE TO LEFT WRIST 22G AND AMEND TO IV SITE TO LEFT AC 20G.
--- NOTE | 2019-11-11 19:25 | NUR ---
BEDSIDE SHIFT REPORT GIVEN TO RESIDENT CARE MANAGER RN NURSE FOR CONTINUATION OF CARE.
[2019-11-11] MEDS: METOPROLOL SUCCINATE 50 MG TABER PO SCH (20:44)
[2019-11-11] MEDS: LATANOPROST 0.005% OP 2.5 ML BTL OP SCH (20:46)
--- NOTE | 2019-11-11 21:19 | NUR ---
PATIENT AWAKE AND IN STABLE CONDITION. NO C/O PAIN. NO S/SX ACUTE DISTRESS. CALL LIGHT WITHIN REACH. WILL CONTINUE TO MONITOR.
--- NOTE | 2019-11-11 22:53 | NUR ---
PATIENT ASLEEP IN BED. DUE MEDS GIVEN ORDERED. NO S/SX ACUTE DISTRESS. CALL LIGHT WITHIN REACH. WILL CONTINUE TO MONITOR.
[2019-11-12] VITALS: BP 110/74
--- NOTE | 2019-11-12 00:30 | NUR ---
MADE ROUNDS. PATIENT ASLEEP AND IN STABLE CONDITION. NO C/O PAIN. NO S/SX ACUTE DISTRESS. CALL LIGHT WITHIN REACH. WILL CONTINUE TO MONITOR.
--- NOTE | 2019-11-12 02:22 | NUR ---
PATIENT AWAKE AND IN STABLE CONDITION. NO C/O PAIN. NO S/SX ACUTE DISTRESS. CALL LIGHT WITHIN REACH. WILL CONTINUE TO MONITOR.
[2019-11-12] MEDS: NACL 0.9% 1,000 ML IV SCH (03:00)
[2019-11-12] MEDS: PIPERACILLIN/TAZOBACTAM 3.375 GM in DEXTROSE 5% 50 ML IV SCH ×2 (04:45→12:32)
--- NOTE | 2019-11-12 05:23 | NUR ---
PATIENT AWAKE AND IN STABLE CONDITION. INCONTINENT CARE PROVIDED BY STAFF. NO C/O PAIN. NO S/SX ACUTE DISTRESS. CALL LIGHT WITHIN REACH. WILL CONTINUE TO MONITOR.
[2019-11-12] MEDS: LEVOTHYROXINE 0.05 MG TAB PO SCH (06:05)
[2019-11-12 06:08] LABS: BASOPHILS # (AUTO) 0.1 K/uL (0.00-0.22); BASOPHILS % (AUTO) 0.9 % (0.0-2.0); EOSINOPHILS # (AUTO) 0.8 K/uL (0-0.4); EOSINOPHILS % (AUTO) 10.2 % (0.0-4.0); HEMATOCRIT 34.4 % (36-52); HEMOGLOBIN 11.9 g/dL (12.0-18.0); LYMPHOCYTES # (AUTO) 4.1 K/uL (2.0-11.5); MEAN CORPUSCULAR HEMOGLOBIN 30 pg (27-31); MEAN CORPUSCULAR HGB CONC 35 g/dL (33-37); MEAN CORPUSCULAR VOLUME 86.7 fL (80-94); MONOCYTES % (AUTO) 12.1 % (1.7-9.3); NEUTROPHILS # (AUTO) 2.1 K/uL (1.8-7.7); NEUTROPHILS % (AUTO) 25.8 % (42.2-75.2); PLATELET COUNT (AUTO) 226 K/uL (140-450); RED BLOOD CELL COUNT(AUTO) 3.97 MIL/uL (4.20-6.10); RED CELL DISTRIBUTION WIDTH 12.6 % (11.6-13.7)
[2019-11-12 06:27] LABS: ANION GAP 10.4 (8-16); CARBON DIOXIDE 27.5 mmol/L (21-32); CREATININE 0.7 mg/dL (0.6-1.3); POTASSIUM 3.9 mmol/L (3.5-5.1)
[2019-11-12 06:30] LABS: PHOSPHORUS 3.2 mg/dL (2.5-4.9)
--- NOTE | 2019-11-12 07:18 | NUR ---
RECEIVED BEDSIDE REPORT FROM PACK PULLER NURSE, PT IS ASLEEP ON 2L O2 NC, NO ACUTE DISTRESS NOTED. SKIN INTACT. IV SITE L AC 20 G, INFUSING NS 80 ML/HR. FALL AND SEIZURE PRECAUTIONS IN PLACE. CALL LIGHT IS WITHIN REACH. WILL CONTINUE TO MONITOR.
[2019-11-12] MEDS ORDERED: LACT-81 PO (07:45)
[2019-11-12] MEDS ORDERED: AMOX-999 PO (07:45)
[2019-11-12 08:00] VITALS: BP 135/75
[2019-11-12] MEDS: ALBUTEROL SULFATE/IPRATROPIU 3 ML SOL IH SCH (09:11)
[2019-11-12] MEDS: PRIMIDONE 50 MG TAB PO SCH (09:28)
[2019-11-12] MEDS: CARBAMIDE PEROXIDE 6.5% OT 15 ML BTL OT SCH (09:28)
[2019-11-12] MEDS: levETIRAcetam 500 MG TAB PO SCH (09:28)
[2019-11-12] MEDS: GEMFIBROZIL 600 MG TAB PO SCH (09:29)
[2019-11-12] MEDS: DIVALPROEX SPRINKLES 125 MG CAPDR PO SCH (09:29)
[2019-11-12] MEDS: HYDROCHLOROTHIAZIDE 25 MG TAB PO SCH (09:29)
[2019-11-12] MEDS: LACOSAMIDE 100 MG TABLET PO SCH (09:29)
[2019-11-12] MEDS: CARBIDOPA/LEVODOPA 25/100 MG 1 TAB PO SCH ×2 (09:30→14:01)
[2019-11-12] MEDS: LACTOBACILLUS RHAMNOSUS GG 1 EACH CAP PO SCH (09:39)
--- NOTE | 2019-11-12 09:41 | NUR ---
AM MEDS ADMINISTERED, CRUSHED WITH APPLE SAUCE. PT TOLERATED WELL
--- NOTE | 2019-11-12 11:20 | NUR ---
PT SATTING 93-95% ON ROOM AIR.
--- NOTE | 2019-11-12 12:55 | NUR ---
PT EATING LUNCH WITH ASSISTANCE FROM SAFETY ANALYST.
--- NOTE | 2019-11-12 13:01 | NUR ---
CALLED HEIKE, MAIL DISTRIBUTOR FROM [facility], TO NOTIFY HER THAT PT WILL BE READY TO GO HOME IN ABOUT 30-45 MINS. HEIKE SAID SHE WILL BE COMING TO PICK PT UP.
--- NOTE | 2019-11-12 13:39 | NUR ---
PT HAD A MEDIUM BM. PT WAS CLEANED, AND CHANGED TO GET READY FOR DC. IV REMOVED. WAITING FOR THE CAREGIVER TO FOOD PREPARATION WORKER PT.
--- NOTE | 2019-11-12 15:09 | NUR ---
CAREGIVER HERE TO FORK LIFT TRUCK OPERATOR PT. SPOKE ON THE PHONE TO PT'S CONSULTING NURSE RENAY AND GAVE HER A BRIEF REPORT.
--- NOTE | 2019-11-12 15:23 | NUR ---
PT HAS DC'D. PT WAS PICKED UP BY FACILITY CAREGIVER. IV SITE AND WRIST BAND REMOVED. PER RECORDS, PT UP TO DATE ON HIS FLU VACCINE. PT'S CAREGIVER WAS GIVEN DC INSTRUCTIONS. PT LEFT IN STABLE CONDITION WITH ALL HIS BELONGINGS.
== END 2019-11-12 15:20 | disposition home or self-care (01) | DRG 871 ==
LOC: MED 12:11 → MTU 15:52
PROVIDERS: ADMIT General Practice; ATTEND General Practice
DX: A41.9 Sepsis, unspecified organism (principal); J69.0 Pneumonitis due to inhalation of food and vomit; E44.0 Moderate protein-calorie malnutrition; R65.20 Severe sepsis without septic shock; I10 Essential (primary) hypertension; G40.909 Epilepsy, unspecified, not intractable, without status epilepticus; E03.9 Hypothyroidism, unspecified; G20 Parkinson's disease; E78.5 Hyperlipidemia, unspecified; F70 Mild intellectual disabilities; E66.9 Obesity, unspecified; E87.6 Hypokalemia; D64.9 Anemia, unspecified; Z68.32 Body mass index [BMI] 32.0-32.9, adult; Z79.899 Other long term (current) drug therapy
CPT/HCPCS: 36415; 71045; 80048; 80053; 80305; 81003; 82150; 83036; 83605; 83690; 83735; 83880; 84100; 84439; 84443; 84484; 85025; 85610; 85730; 87040; 87081; 87086; 87804; 92526; 92610; 94640; 96365; 96367; 99285; J0456; J0696; J2543; J7030; J7060; J7620; Q0092

== ENCOUNTER 2019-11-28 17:47 | Emergency (ER) | payer OTHER, MEDICAID ==
[~2019-11-28] VITALS: Ht 167.6 cm; Wt 90.3 kg
[~2019-11-28 17:47] MED LIST: AMOX-999 PO; BISA-188 PR; CARB15DR8 OT; CARB1ODT4 PO; DIVA125E1 PO; GEMF600T5 PO; IBUP-2213 PO; LACO150T PO; LACT-81 PO; LEVE1000 PO; METO25TE2 PO; MULT-153 PO; NITR0.4T2 SL; ORE25 PO; PRIM250T70 PO; PSYL0.5227 PO; SYN.05 PO; TRAV5SOL OP; TYL650S PO; [UNRECOGNIZED DRUG - CODE] PO; [UNRECOGNIZED DRUG - OTHER] TOP
[2019-11-28 17:50] VITALS: BP 145/93
--- NOTE | 2019-11-28 17:59 | NUR ---
W/C ASSIST TO BED 07 BY CAREGIVER
--- NOTE | 2019-11-28 18:00 | NUR ---
64 YRS OLD MALE BIB CAREGIVER C/O PAIN AND EDEMA ON LEFT FOOT 06/29. WENT TO URGENT CARE 2 DAYS AGO WITH ULTRASOUND AND XRAYS DONE WITH NEGATIVE RESULTS, PT INSTRUCTED TO ELEVATE THE LEGS WHICH HELPED WITH THE SWELLING BUT STARTED SWELLING UP AGAIN. CAREGIVER AT BEDSIDE, BED IN LOWEST POSITION, SIDE RAIL UP X2. WILL CONTINUE TO MONITOR.
[2019-11-28] MEDS ORDERED: IBUPROFEN 600 MG TAB PO ONE (18:30)
--- NOTE | 2019-11-28 18:30 | NUR ---
Radiology at bedside
--- NOTE | 2019-11-28 19:00 | NUR ---
LAB AT BEDSIDE
--- NOTE | 2019-11-28 19:14 | NUR ---
REPORT GIVEN TO AJ WINTERS FOR CONTINUITY OF CARE.
[2019-11-28 19:27] LABS: BASOPHILS # (AUTO) 0.1 K/uL (0.00-0.22); BASOPHILS % (AUTO) 0.6 % (0.0-2.0); EOSINOPHILS # (AUTO) 0.4 K/uL (0-0.4); EOSINOPHILS % (AUTO) 4.2 % (0.0-4.0); HEMATOCRIT 41.1 % (36-52); HEMOGLOBIN 13.5 g/dL (12.0-18.0); LYMPHOCYTES # (AUTO) 4.9 K/uL (2.0-11.5); LYMPHOCYTES % (AUTO) 46.1 % (20.5-51.1); MEAN CORPUSCULAR HEMOGLOBIN 30 pg (27-31); MEAN CORPUSCULAR HGB CONC 33 g/dL (33-37); MEAN CORPUSCULAR VOLUME 91.6 fL (80-94); MONOCYTES # (AUTO) 1.5 K/uL (0.8-1.0); MONOCYTES % (AUTO) 13.7 % (1.7-9.3); NEUTROPHILS # (AUTO) 3.8 K/uL (1.8-7.7); NEUTROPHILS % (AUTO) 35.4 % (42.2-75.2); PLATELET COUNT (AUTO) 255 K/uL (140-450); RED BLOOD CELL COUNT(AUTO) 4.48 MIL/uL (4.20-6.10); RED CELL DISTRIBUTION WIDTH 13.8 % (11.6-13.7); WHITE BLOOD COUNT (AUTO) 10.6 K/uL (4.8-10.8)
[2019-11-28 19:41] LABS: PROTHROMBIN TIME 9.8 secs (10.8-13.4)
[2019-11-28 19:46] LABS: ALBUMIN 3.6 g/dL (3.4-5.0); ANION GAP 13.4 (8-16); CARBON DIOXIDE 30.4 mmol/L (21-32); CREATININE 1.1 mg/dL (0.6-1.3); POTASSIUM 3.8 mmol/L (3.5-5.1); TOTAL BILIRUBIN 0.3 mg/dL (0.0-1.0)
--- NOTE | 2019-11-28 20:30 | NUR ---
PATIENT ALERT AND AWAKE, BREATHING EVEN AND UNLABORED
--- NOTE | 2019-11-28 21:30 | NUR ---
Patient discharged with v/s stable. Written and verbal after care instructions about foot fractures given and explained to time piece repairer. Patient alert, oriented and verbalized understanding of instructions. Ambulatory with steady gait. All questions addressed prior to discharge. ID band removed. Patient advised to follow up with PMD. Rx of ibuprofen given. Patient educated on indication of medication including possible reaction and side effects. Opportunity to ask questions provided and answered.
--- NOTE | 2019-11-28 21:41 | NUR ---
PLACED PT IN POSTIOR LEG SPLINT ON PT'S LEFT FOOT, CHECKED PMSC'S BEFORE AND AFTER WITHOUT INCIDENT.
== END 2019-11-28 21:30 | disposition home or self-care (01) ==
LOC: MED 17:47
DX: S92.322A Displaced fracture of second metatarsal bone, left foot, initial encounter for closed fracture (principal); I10 Essential (primary) hypertension; Z79.899 Other long term (current) drug therapy; X58.XXXA Exposure to other specified factors, initial encounter; Y93.89 Activity, other specified; Y92.89 Other specified places as the place of occurrence of the external cause; Y99.8 Other external cause status
CPT/HCPCS: 29515; 36415; 73610; 73630; 80053; 85025; 85610; 93971; 99285; Q0092

== ENCOUNTER 2019-12-02 10:58 | Emergency (ER) | payer OTHER, MEDICAID ==
[~2019-12-02] VITALS: Ht 170.2 cm; Wt 72.6 kg
[2019-12-02 11:02] VITALS: BP 133/85
--- NOTE | 2019-12-02 11:10 | NUR ---
Taken to bed 9 via w/c
--- NOTE | 2019-12-02 11:32 | NUR ---
BLADDER SCAN RESULT OF 292 ML
--- NOTE | 2019-12-02 11:37 | NUR ---
64/M BIB CAREGIVER FROM [facility]. CC: NO URINE OUTPUT SINCE 9PM LAST NIGHT DESPITE INTAKE OF FLUIDS. NORMALLY HAS DIAPER CHANGE 5X THROUGHOUT THE NIGHT BUT DID NOT WET DIAPER LAST NIGHT. DECREASED APPETITE X 2 WEEKS PER CAREGIVER PT'S MENTAL STATUS IS AT BASELINE. LBM: 3 DAYS AGO +COUGH, -FEVER, -RUNNY NOSE. DX ASPIRATION PNA IN OCT 2019. PMH: GLAUCOMA, ASPIRATION PNEUMONIA (OCT 2019), FX LEFT FOOT, HTN, THYROID DZ, HYPERCHOL NKA
--- NOTE | 2019-12-02 11:38 | NUR ---
DR JIMENEZ EVALUATING PT AT BEDSIDE
[2019-12-02] MEDS ORDERED: NACL 0.9% 500 ML IV SCH (11:44)
--- NOTE | 2019-12-02 11:52 | NUR ---
EMT AT BEDSIDE FOR EKG
--- NOTE | 2019-12-02 11:52 | NUR ---
CXR AT BEDSIDE
--- NOTE | 2019-12-02 12:25 | NUR ---
SENIOR NATIONAL ACCOUNT MANAGER AT BEDSIDE
[2019-12-02 13:28] LABS: BASOPHILS % (AUTO) 0.6 % (0.0-2.0); EOSINOPHILS # (AUTO) 0.5 K/uL (0-0.4); EOSINOPHILS % (AUTO) 5.7 % (0.0-4.0); HEMATOCRIT 39.7 % (36-52); HEMOGLOBIN 13.1 g/dL (12.0-18.0); LYMPHOCYTES # (AUTO) 3.9 K/uL (2.0-11.5); LYMPHOCYTES % (AUTO) 45.6 % (20.5-51.1); MEAN CORPUSCULAR HEMOGLOBIN 30 pg (27-31); MEAN CORPUSCULAR HGB CONC 33 g/dL (33-37); MEAN CORPUSCULAR VOLUME 91.7 fL (80-94); MONOCYTES % (AUTO) 12.4 % (1.7-9.3); NEUTROPHILS % (AUTO) 35.7 % (42.2-75.2); PLATELET COUNT (AUTO) 251 K/uL (140-450); RED BLOOD CELL COUNT(AUTO) 4.33 MIL/uL (4.20-6.10); RED CELL DISTRIBUTION WIDTH 13.4 % (11.6-13.7); WHITE BLOOD COUNT (AUTO) 8.4 K/uL (4.8-10.8)
--- NOTE | 2019-12-02 13:31 | NUR ---
LAB STATES ALL ORDERED BLOOD, INCLUDING BLOOD CULTURES, HAS BEEN DRAWN AND WILL BE PROCESSING SOON.
[2019-12-02 13:50] LABS: BILIRUBIN,URINE NEGATIVE (NEGATIVE); BLOOD, URINE NEGATIVE (NEGATIVE); COLOR,URINE YELLOW (YELLOW); LEUKOCYTE ESTERASE ,URINE 2+ (NEGATIVE); NITRITE, URINE POSITIVE (NEGATIVE); UGLUCOSE NEGATIVE (NEGATIVE)
[2019-12-02 13:53] LABS: APPEARANCE,URINE HAZY (CLEAR)
[2019-12-02 13:54] LABS: RBC,URINE 0-5 /HPF (0-5)
[2019-12-02 14:01] LABS: PROTHROMBIN TIME 10.2 secs (10.8-13.4)
[2019-12-02 14:02] LABS: ALBUMIN 3.3 g/dL (3.4-5.0); ANION GAP 16.7 (8-16); CARBON DIOXIDE 26.1 mmol/L (21-32); CREATININE 1.1 mg/dL (0.6-1.3); POTASSIUM 3.8 mmol/L (3.5-5.1); TOTAL BILIRUBIN 0.4 mg/dL (0.0-1.0)
[2019-12-02] MEDS ORDERED: NACL 0.9% 2,500 ML IV ONE (14:25)
[2019-12-02] MEDS ORDERED: LEVOFLOXACIN 500 MG/D5W PREMIX 100 ML IV ONE (14:25)
--- NOTE | 2019-12-02 15:20 | NUR ---
PT CALLING OUT FOR CAREGIVER HEIKE WITHOUT SPECIFIC REQUEST/NEEDS, CALLED HEIKE ([phone]) PER PT REQUEST. HEIKE STATES SHE SHOULD BE HERE SOON.
--- NOTE | 2019-12-02 15:30 | NUR ---
per lab, repeat lactic acid scheduled for 161
--- NOTE | 2019-12-02 15:43 | NUR ---
CAREGIVER HEIKE AT BEDSIDE
--- NOTE | 2019-12-02 16:05 | NUR ---
LAB AT BEDSIDE.
--- NOTE | 2019-12-02 16:09 | NUR ---
NOTIFIED LAB NO LONGER NEED REPEAT LACTIC ACID PER DR. JIMENEZ
--- NOTE | 2019-12-02 16:51 | NUR ---
DR JIMENEZ ANSWERING CAREGIVER'S QUESTIONS AT BEDSIDE
--- NOTE | 2019-12-02 17:25 | NUR ---
Patient discharged with v/s stable. Written and verbal after care instructions given and explained. CAREGIVER alert, oriented and verbalized understanding of instructions. Wheel Chair Assisted with by caregiver. All questions addressed prior to discharge. ID band removed. Patient advised to follow up with PMD. Rx of DOXYCYLCINE given. CAREGIVER educated on indication of medication including possible reaction and side effects. Opportunity to ask questions provided and answered.
[2019-12-02 17:26] VITALS: BP 117/67
== END 2019-12-02 17:25 | disposition home or self-care (01) ==
LOC: MED 10:58
DX: N39.0 Urinary tract infection, site not specified (principal); I10 Essential (primary) hypertension; R56.9 Unspecified convulsions; E07.9 Disorder of thyroid, unspecified; Z79.899 Other long term (current) drug therapy
CPT/HCPCS: 36415; 71045; 80053; 81001; 83605; 83880; 84484; 85025; 85610; 85730; 87040; 87086; 93005; 96361; 99285; C1758; J1956; J7030; Q0092; 87186

== ENCOUNTER 2020-10-11 12:45 | Emergency (ER) | payer OTHER, MEDICAID ==
[~2020-10-11] VITALS: Ht 170.2 cm; Wt 84.4 kg
[~2020-10-11 12:45] MED LIST changes: -MULT-153 PO; +MULT-2112 PO
[2020-10-11 12:55] VITALS: BP 143/83
--- NOTE | 2020-10-11 13:02 | NUR ---
64YO M BIB CAREGIVER FROM [facility] C/O LOSS OF APPETITE, WEAKNESS X 3 DAYS. PT ALSO WITH LOW URINE OUTPUT X THIS AM. IN ED, PT IN WHEELCHAIR. VSS. AOX1. CLEAR BREATH SOUNDS. 3/5 STRENGTH ON BOTH EXTREMITIES. PT ON WHEELCHAIR IN ROOM. ERMD MADE AWARE OF PT STATUS. PMH: HLD, SEIZURE, HTN, HYPOTHYROID NKA
[2020-10-11] MEDS ORDERED: cefTRIAXone 1,000 MG in DEXT 5% MINI-BAG PLUS 50 ML IV ONE (13:10)
[2020-10-11] MEDS ORDERED: NACL 0.9% 1,000 ML IV SCH (13:10)
[2020-10-11] MEDS ORDERED: cefTRIAXone 1,000 MG VIAL ONE (13:21)
--- NOTE | 2020-10-11 13:57 | NUR ---
EJ SWAB DONE. WALKED TO LAB.
[2020-10-11 14:00] LABS: BASOPHILS # (AUTO) 0.1 K/uL (0.00-0.22); BASOPHILS % (AUTO) 0.6 % (0.0-2.0); EOSINOPHILS # (AUTO) 0.3 K/uL (0-0.4); EOSINOPHILS % (AUTO) 3.1 % (0.0-4.0); HEMATOCRIT 42.4 % (36-52); HEMOGLOBIN 14.5 g/dL (12.0-18.0); LYMPHOCYTES # (AUTO) 3.9 K/uL (2.0-11.5); LYMPHOCYTES % (AUTO) 45.1 % (20.5-51.1); MEAN CORPUSCULAR HEMOGLOBIN 31 pg (27-31); MEAN CORPUSCULAR HGB CONC 34 g/dL (33-37); MEAN CORPUSCULAR VOLUME 90.2 fL (80-94); MONOCYTES # (AUTO) 0.9 K/uL (0.8-1.0); MONOCYTES % (AUTO) 10.4 % (1.7-9.3); NEUTROPHILS # (AUTO) 3.6 K/uL (1.8-7.7); NEUTROPHILS % (AUTO) 40.8 % (42.2-75.2); PLATELET COUNT (AUTO) 199 K/uL (140-450); RED CELL DISTRIBUTION WIDTH 13.8 % (11.6-13.7); WHITE BLOOD COUNT (AUTO) 8.7 K/uL (4.8-10.8)
[2020-10-11 14:11] LABS: ALBUMIN 3.8 g/dL (3.4-5.0); ANION GAP 11.5 (8-16); CARBON DIOXIDE 30.2 mmol/L (21-32); POTASSIUM 3.7 mmol/L (3.5-5.1); TOTAL BILIRUBIN 0.3 mg/dL (0.0-1.0)
[2020-10-11 14:56] LABS: APPEARANCE,URINE HAZY (CLEAR); BILIRUBIN,URINE NEGATIVE (NEGATIVE); BLOOD, URINE NEGATIVE (NEGATIVE); COLOR,URINE YELLOW (YELLOW); LEUKOCYTE ESTERASE ,URINE TRACE (NEGATIVE); NITRITE, URINE NEGATIVE (NEGATIVE); UGLUCOSE NEGATIVE (NEGATIVE)
[2020-10-11 15:31] VITALS: BP 143/83
--- NOTE | 2020-10-11 15:31 | NUR ---
Patient discharged with v/s stable. Written and verbal after care instructions given and explained. Patient alert, oriented and verbalized understanding of instructions. Wheel Chair Assisted with by caregiver. All questions addressed prior to discharge. ID band removed. Patient advised to follow up with PMD. Rx of AZITHROMYCIN given. Patient educated on indication of medication including possible reaction and side effects. Opportunity to ask questions provided and answered.
== END 2020-10-11 15:31 | disposition home or self-care (01) ==
LOC: MED 12:45
DX: J18.9 Pneumonia, unspecified organism (principal); I10 Essential (primary) hypertension; E07.9 Disorder of thyroid, unspecified; Z79.899 Other long term (current) drug therapy; Z20.828 Contact with and (suspected) exposure to other viral communicable diseases
CPT/HCPCS: 36415; 71045; 80053; 81003; 83605; 83880; 84484; 85025; 87040; 87086; 87426; 93005; 96361; 96365; 99285; J0696

== ENCOUNTER 2022-03-18 17:02 | Emergency (ER) | payer OTHER, MEDICAID ==
[~2022-03-18] VITALS: Ht 167.6 cm; Wt 71.7 kg
[~2022-03-18 17:02] MED LIST changes: +HYDR-4004 PO; +METAMUCIL0.52 G2 PO; -ORE25 PO; -PSYL0.5227 PO
[2022-03-18 17:07] VITALS: BP 128/79
--- NOTE | 2022-03-18 17:33 | NUR ---
Patient was assisted to bed.
[2022-03-18] MEDS ORDERED: MORPHINE SULFATE 4 MG/ML SYR IVP ONE (17:50)
[2022-03-18] MEDS ORDERED: NACL 0.9% 1,000 ML IV SCH (17:50)
--- NOTE | 2022-03-18 17:51 | NUR ---
DR WOOD AT BEDSIDE EVALUATING PT
[2022-03-18 19:05] LABS: BASOPHILS # (AUTO) 0.1 K/uL (0.00-0.22); BASOPHILS % (AUTO) 0.5 % (0.0-2.0); EOSINOPHILS # (AUTO) 0.4 K/uL (0-0.4); EOSINOPHILS % (AUTO) 3.3 % (0.0-4.0); HEMATOCRIT 40.1 % (36-52); HEMOGLOBIN 13.7 g/dL (12.0-18.0); LYMPHOCYTES # (AUTO) 4.5 K/uL (2.0-11.5); LYMPHOCYTES % (AUTO) 41.2 % (20.5-51.1); MEAN CORPUSCULAR HEMOGLOBIN 31 pg (27-31); MEAN CORPUSCULAR HGB CONC 34 g/dL (33-37); MONOCYTES # (AUTO) 1.3 K/uL (0.8-1.0); NEUTROPHILS # (AUTO) 4.7 K/uL (1.8-7.7); PLATELET COUNT (AUTO) 246 K/uL (140-450); RED BLOOD CELL COUNT(AUTO) 4.45 MIL/uL (4.20-6.10); RED CELL DISTRIBUTION WIDTH 12.9 % (11.6-13.7); WHITE BLOOD COUNT (AUTO) 10.9 K/uL (4.8-10.8)
--- NOTE | 2022-03-18 19:07 | NUR ---
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 Patient has 7/10 pain that radiates from abdomen to back and is worse when lying down.Patient has dysuria. Denies fever, chills, hematuria. Medical History: INTELECTUAL DISABILITY,SEIZURE DISORDER,GLAUCOMA, ANGINA, EDEMA IN FEET, GENERALIZED WEAKNESS, HYPOTHYROID, HTN, HDL Medications:See Medication List NKDA
[2022-03-18 19:55] LABS: ALBUMIN 3.3 g/dL (3.4-5.0); CARBON DIOXIDE 30.8 mmol/L (21-32); POTASSIUM 3.8 mmol/L (3.5-5.1); TOTAL BILIRUBIN 0.2 mg/dL (0.0-1.0)
--- NOTE | 2022-03-18 19:58 | NUR ---
URINE COLLECTED AND HANDED TO LAB
--- NOTE | 2022-03-18 20:00 | NUR ---
IVF NACL 1L WIDE BOLUS GIVEN [phone]. LATE ADMIN DUE TO MORNING SHIFT NOT ADMINISTERING.
[2022-03-18 20:04] LABS: BILIRUBIN,URINE NEGATIVE (NEGATIVE); BLOOD, URINE NEGATIVE (NEGATIVE); COLOR,URINE YELLOW (YELLOW); LEUKOCYTE ESTERASE ,URINE 2+ (NEGATIVE); NITRITE, URINE POSITIVE (NEGATIVE); UGLUCOSE NEGATIVE (NEGATIVE)
[2022-03-18 20:19] LABS: APPEARANCE,URINE CLOUDY (CLEAR); RBC,URINE NONE SEEN /HPF (0-5); WBC,URINE TOO MANY TO COUNT /HPF (0-5)
[2022-03-18] MEDS ORDERED: ACET-10509 PO (20:26)
[2022-03-18] MEDS ORDERED: CEPH-588 PO (20:29)
[2022-03-18] MEDS ORDERED: CIPR500T4 PO (20:30)
[2022-03-18] MEDS ORDERED: cephALEXin 500 MG CAP PO ONE (20:30)
[2022-03-18] MEDS ORDERED: MORPHINE SULFATE 4 MG/ML SYR ONE (20:55)
--- NOTE | 2022-03-18 21:40 | NUR ---
Justine bauer in ED - 03/18/22 at 2257 by ANA PAULA IV removed, catheter intact and site benign. Applied folded 4x4 gauze and tape to stop bleeding.
--- NOTE | 2022-03-18 21:40 | NUR ---
IV removed, catheter intact and site benign. Applied folded 4x4 gauze and tape to stop bleeding.
[2022-03-18 21:43] VITALS: BP 119/63
--- NOTE | 2022-03-18 21:43 | NUR ---
Patient discharged with v/s stable. Written and verbal after care instructions given ON UTI AND ABD PAIN and explained. Patient alert, oriented and verbalized understanding of instructions. Wheel Chair Assisted with by caregiver. All questions addressed prior to discharge. ID band removed. Patient advised to follow up with PMD. Rx of ACETAMINOPHEN AND CIPROFLOXACIN given.
--- NOTE | 2022-03-18 21:45 | NUR ---
Chart checked and completed.
== END 2022-03-18 21:43 | disposition home or self-care (01) ==
LOC: MED 17:02
DX: N39.0 Urinary tract infection, site not specified (principal); K76.0 Fatty (change of) liver, not elsewhere classified; N28.1 Cyst of kidney, acquired; R10.84 Generalized abdominal pain; I10 Essential (primary) hypertension; E03.9 Hypothyroidism, unspecified; E78.5 Hyperlipidemia, unspecified
CPT/HCPCS: 36415; 74176; 80053; 81001; 83690; 85025; 87086; 96374; 99285; J2270; J7030